=== PATIENT | male | born 1995 | race Asian ===

== ENCOUNTER 2018-04-28 13:38 | Emergency (ER) | payer MEDICAID ==
[2018-04-28] MEDS ORDERED: Triple Antibiotic 0.94 gm Pkt TP ONE (14:09)
--- NOTE | 2018-05-19 10:03 | ER Physician Documentation ---
DATE OF SERVICE: 04/28/2018 HISTORY OF PRESENT ILLNESS: The patient presented to our Emergency Room on 04/28/2018 after he required a right brow laceration without any loss of consciousness 30 hours prior. He did not come for medical care prior to that because he said that his mother looked at the wound and told him that it did not require any stitching at all. He fell from a wheelchair, struck some wood and this trauma occurred 30 hours prior according to team in hands triage note. PAST MEDICAL HISTORY: Remarkable for brain trauma of longstanding duration. The patient is wheelchair bound and hemiplegic. REVIEW OF SYSTEMS: Only positive for an old right brow laceration. PHYSICAL EXAMINATION: The patient's neuro exam is benign except for the preexisting longstanding hemiplegia on the right side. He also is noted to have a normal visual acuity and he has an old right brow laceration through the hair of his brow that is already started healing with fibrin exudate present, absolutely no pus present. No signs or symptoms of infection present. The rest of his facial exam is within normal limits. His occlusion of his teeth is normal. He has no bony step-offs present. His extraocular movements are completely intact and full. Pupils equal, round, reactive to light and accommodation. ASSESSMENT/PLAN: A 30-hour old wound that has already started to heal with no signs or symptoms of infection present. Nurse Yessica Estes was shown how to do wound care, which showed the patient had to do wound care with his friend present with sterile saline, cleaning it twice a day and then applying antibiotic ointment b.i.d. The patient was also placed on Keflex 500 mg 1 p.o. q.i.d. #12 for empiric prevention of infection. The patient was told meghna garcia to go to his primary care physician for followup as needed. There was no need for CAT scan. No need for radiographic and definitely contraindicated to have sutures placed in the 30-hour old wound. JOB# [id number]
== END 2018-04-28 14:33 | disposition home or self-care (01) ==
LOC: ER 13:38
DX: S01.111A Laceration without foreign body of right eyelid and periocular area, initial encounter (principal); W05.0XXA Fall from non-moving wheelchair, initial encounter; Y93.89 Activity, other specified; Y92.89 Other specified places as the place of occurrence of the external cause; Y99.8 Other external cause status
CPT/HCPCS: Z7502